=== PATIENT | female | born 1975 | race Caucasian/White ===

== ENCOUNTER 2019-02-04 08:27 | Emergency (ER) | payer BC ==
--- NOTE | 2019-02-04 08:49 | EDM.PDOC ---
ED HPI GENERAL MEDICAL PROBLEM - General Chief Complaint: Lower Extremity Injury/Pain Stated Complaint: BOTH LEGS SWOLLEN & HAVE RED BLOTCHES Time Seen by Provider: 02/04/19 08:43 - History of Present Illness INITIAL COMMENTS - FREE TEXT/NARRATIVE: HISTORY AND PHYSICAL: History of present illness: Patient's 43-year-old female with history chronic pain syndrome who presents with edema of her lower extremities she denies chest pain chores breath or other concern. Review of systems: As per history of present illness and below otherwise all systems reviewed and negative. Past medical history: As per history of present illness and as reviewed below otherwise noncontributory. Surgical history: As per history of present illness and as reviewed below otherwise noncontributory. Social history: No reported history of drug or alcohol abuse. Family history: As per history of present illness and as reviewed below otherwise noncontributory. Physical exam: HEENT: Atraumatic, normocephalic, pupils reactive, negative for conjunctival pallor or scleral icterus, mucous membranes moist, throat clear, neck supple, nontender, trachea midline. Lungs: Clear to auscultation, breath sounds equal bilaterally, chest nontender. Heart: S1S2, regular, negative for clicks, rubs, or JVD. Abdomen: Soft, nondistended, nontender. Negative for masses or hepatosplenomegaly. Negative for costovertebral tenderness. Pelvis: Stable nontender. Genitourinary: Deferred. Rectal: Deferred. Extremities: Atraumatic, negative for cords or calf pain. Neurovascular unremarkable. Neuro: Awake, alert, oriented. Cranial nerves II through XII unremarkable. Cerebellum unremarkable. Motor and sensory unremarkable throughout. Exam nonfocal. Diagnostics: CBC CMP BNP chest x-ray EKG Therapeutics: None Impression: #1 history of peripheral edema #2 history of chronic pain syndrome #3 medical screening exam Definitive disposition and diagnosis as appropriate pending reevaluation and review of above. Bilateral Lower Leg Pain Score (Numeric/FACES): 3 - Related Data Allergies Allergy/AdvReac Type Severity Reaction Status Date / Time No Known Allergies Allergy Verified 02/04/19 08:40 Home Meds: Home Meds Albuterol Sulfate [Proair Hfa] 02/04/19 [History] Cyclobenzaprine [Flexeril] 02/04/19 [History] Gabapentin [Neurontin] 02/04/19 [History] SUMAtriptan [Imitrex] 02/04/19 [History] Topiramate [Topamax] 02/04/19 [History] fentaNYL [Fentanyl] 02/04/19 [History] oxyCODONE HCl/Acetaminophen [Percocet 5-325 mg Tablet] 02/04/19 [History] Past Medical History Respiratory History: Reports: Asthma Musculoskeletal History: Reports: Back Pain, Chronic Neurological History: Reports: Migraines - Infectious Disease History Infectious Disease History: Reports: Chicken Pox - Past Surgical History GI Surgical History: Reports: Bariatric Procedure Female Surgical History: Reports: Tubal Ligation Social & Family History - Family History Family Medical History: Noncontributory - Tobacco Use Smoking Status *Q: Light Tobacco Smoker Years of Tobacco use: 20 Packs/Tins Daily: 0.1 - Recreational Drug Use Recreational Drug Use: No Review of Systems - Review of Systems Review Of Systems: ROS reveals no pertinent complaints other than HPI. ED EXAM, GENERAL - Physical Exam Exam: See Below (See dictation) Course - Vital Signs Last Recorded V/S: Last Vital Signs Temp 36.1 C 02/04/19 08:38 Pulse 104 H 02/04/19 08:38 Resp 18 02/04/19 08:38 BP 125/79 02/04/19 08:38 Pulse Ox 99 02/04/19 08:38 - Orders/Labs/Meds Orders: Active Orders 24 hr Category Date Time Status EKG Documentation Completion [RC] STAT Care 02/04/19 08:47 Active Chest 1V Frontal [CR] Stat Exams 02/04/19 08:47 Taken B-TYPE NATRIURETIC PEPTIDE,BNP [CHEM] Stat Lab 02/04/19 09:00 Received Labs: Laboratory Tests 02/04/19 02/04/19 Range/Units 09:00 09:00 WBC 4.19 (4.0-11.0) K/uL RBC 3.89 L (4.30-5.90) M/uL Hgb 11.8 L (12.0-16.0) g/dL Hct 36.2 (36.0-46.0) % MCV 93.1 (80.0-98.0) fL MCH 30.3 (27.0-32.0) pg MCHC 32.6 (31.0-37.0) g/dL RDW Std Deviation 45.7 (28.0-62.0) fl RDW Coeff of Juan 14 (11.0-15.0) % Plt Count 224 (150-400) K/uL MPV 9.40 (7.40-12.00) fL Neut % (Auto) 32.2 L (48.0-80.0) % Lymph % (Auto) 56.3 H (16.0-40.0) % [place] % (Auto) 8.4 (0.0-15.0) % Eos % (Auto) 2.9 (0.0-7.0) % Baso % (Auto) 0.2 (0.0-1.5) % Neut # (Auto) 1.4 (1.4-5.7) K/uL Lymph # (Auto) 2.4 (0.6-2.4) K/uL [place] # (Auto) 0.4 (0.0-0.8) K/uL Eos # (Auto) 0.1 (0.0-0.7) K/uL Baso # (Auto) 0.0 (0.0-0.1) K/uL Nucleated RBC % 0.0 /100WBC Nucleated RBCs # 0 K/uL Sodium 143 (136-145) mmol/L Potassium 3.6 (3.5-5.1) mmol/L Chloride 111 H (98-107) mmol/L Carbon Dioxide 24.1 (21.0-32.0) mmol/L BUN 13 (7.0-18.0) mg/dL Creatinine 0.7 (0.6-1.0) mg/dL Est Cr Clr Drug Dosing TNP Estimated GFR (MDRD) > 60.0 ml/min Glucose 102 (74-106) mg/dL Calcium 8.3 L (8.5-10.1) mg/dL Total Bilirubin 0.3 (0.2-1.0) mg/dL AST 10 L (15-37) IU/L ALT 13 L (14-63) IU/L Alkaline Phosphatase 43 L (46-116) U/L Total Protein 6.2 L (6.4-8.2) g/dL Albumin 3.2 L (3.4-5.0) g/dL Globulin 3.0 (2.6-4.0) g/dL Albumin/Globulin Ratio 1.1 (0.9-1.6) Departure - Departure Time of Disposition: 09:48 Disposition: Home, Self-Care 01 Condition: Good Clinical Impression: Encounter for medical screening examination - Discharge Information Referrals: PCP,None [Primary Care Provider] - Forms: ED Department Discharge Additional Instructions: The following information is given to patients seen in the emergency department who are being discharged to home. This information is to outline your options for follow-up care. We provide all patients seen in our emergency department with a follow-up referral. The need for follow-up, as well as the timing and circumstances, are variable depending upon the specifics of your emergency department visit. If you don't have a primary care physician on staff, we will provide you with a referral. We always advise you to contact your personal physician following an emergency department visit to inform them of the circumstance of the visit and for follow-up with them and/or the need for any referrals to a consulting specialist. The emergency department will also refer you to a specialist when appropriate. This referral assures that you have the opportunity for followup care with a specialist. All of these measure are taken in an effort to provide you with optimal care, which includes your followup. Under all circumstances we always encourage you to contact your private physician who remains a resource for coordinating your care. When calling for followup care, please make the office aware that this follow-up is from your recent emergency room visit. If for any reason you are refused follow-up, please contact the [facility] emergency department at and asked to speak to the emergency department charge nurse. [facility] [address] [place] [id number] Follow-up primary medical doctor and/or clinic above is discussed return as needed as discussed - My Orders Last 24 Hours: My Active Orders 02/04/19 08:47 EKG Documentation Completion [RC] STAT Chest 1V Frontal [CR] Stat 02/04/19 09:00 B-TYPE NATRIURETIC PEPTIDE,BNP [CHEM] Stat - Assessment/Plan Last 24 Hours: My Active Orders 02/04/19 08:47 EKG Documentation Completion [RC] STAT Chest 1V Frontal [CR] Stat 02/04/19 09:00 B-TYPE NATRIURETIC PEPTIDE,BNP [CHEM] Stat
[2019-02-04 09:25] LABS: CHLORIDE,CL 111 mmol/L (98-107); SODIUM,NA 143 mmol/L (136-145)
--- NOTE | 2019-02-04 09:55 | CR ---
INDICATION: Pain and shortness of breath. TECHNIQUE: Chest 1 view. COMPARISON: None FINDINGS: Cardiovascular and mediastinum: Heart size and vasculature are normal in caliber and appearance. Mediastinum is within normal limits. Lungs and pleural space: Lungs are clear. No sign of infiltrate or mass. No sign of pleural effusion. No pneumothorax. Bones and soft tissues: No significant findings. IMPRESSION: Unremarkable chest. Dictated by Lambert Damon MD @ Feb 04 2019 9:54AM Signed by Dr. Lambert Damon @ Feb 04 2019 9:54AM
== END 2019-02-04 10:11 | disposition home or self-care (01) ==
LOC: MW.ED 08:27
DX: Z13.9 Encounter for screening, unspecified (principal); Z86.79 Personal history of other diseases of the circulatory system; Z87.39 Personal history of other diseases of the musculoskeletal system and connective tissue; J45.909 Unspecified asthma, uncomplicated; F17.210 Nicotine dependence, cigarettes, uncomplicated; Z79.899 Other long term (current) drug therapy
CPT/HCPCS: 36415; 71045; 71045-26; 80053; 83880; 85025; 93005; 99283; 99284-25

== ENCOUNTER 2019-02-06 18:03 | Emergency (ER) | payer BC ==
--- NOTE | 2019-02-06 19:07 | EDM.PDOC ---
ED HPI GENERAL MEDICAL PROBLEM - General Chief Complaint: Lower Extremity Injury/Pain Stated Complaint: LEG PAIN Time Seen by Provider: 02/06/19 19:06 Source of Information: Reports: Patient - History of Present Illness INITIAL COMMENTS - FREE TEXT/NARRATIVE: HISTORY AND PHYSICAL: History of present illness: She presents with right lower extremity pain in her calf as well as behind her knee she has had some intermittent swelling no edema at current No fever nausea vomiting chills sweats no chest pain shortness breath headache dizziness palpitation no bowel or urine symptoms Summary she has completed a car ride from [place] to here she was seen on the see that lab on file Review of systems: As per history of present illness and below otherwise all systems reviewed and negative. Past medical history: As per history of present illness and as reviewed below otherwise noncontributory. Surgical history: As per history of present illness and as reviewed below otherwise noncontributory. Social history: No reported history of drug or alcohol abuse. Family history: As per history of present illness and as reviewed below otherwise noncontributory. Physical exam: HEENT: Atraumatic, normocephalic, pupils reactive, negative for conjunctival pallor or scleral icterus, mucous membranes moist, throat clear, neck supple, nontender, trachea midline. Lungs: Clear to auscultation, breath sounds equal bilaterally, chest nontender. Heart: S1S2, regular, negative for clicks, rubs, or JVD. Abdomen: Soft, nondistended, nontender. Negative for masses or hepatosplenomegaly. Negative for costovertebral tenderness. Pelvis: Stable nontender. Genitourinary: Deferred. Rectal: Deferred. Extremities: Atraumatic, negative for cords or calf pain. Neurovascular unremarkable. Neuro: Awake, alert, oriented. Cranial nerves II through XII unremarkable. Cerebellum unremarkable. Motor and sensory unremarkable throughout. Exam nonfocal. Diagnostics: [Lab on file from previous visit on the venous Doppler rule out DVT ] Therapeutics: [] Impression: Medical screening exam Worried well Definitive disposition and diagnosis as appropriate pending reevaluation and review of above. Right Knee Pain Score (Numeric/FACES): 3 - Related Data Allergies Allergy/AdvReac Type Severity Reaction Status Date / Time No Known Allergies Allergy Verified 02/06/19 18:44 Home Meds: Home Meds Albuterol Sulfate [Proair Hfa] 2 puff INH ASDIRECTED PRN 02/04/19 [History] Cyclobenzaprine [Flexeril] 10 mg PO ASDIRECTED PRN 02/04/19 [History] Gabapentin [Neurontin] 900 mg PO BEDTIME 02/04/19 [History] SUMAtriptan [Imitrex] 100 mg PO ASDIRECTED 02/04/19 [History] Topiramate [Topamax] 150 mg PO BEDTIME 02/04/19 [History] fentaNYL [Fentanyl] 25 mcg TOP ASDIRECTED 02/04/19 [History] oxyCODONE HCl/Acetaminophen [Percocet 5-325 mg Tablet] 1 tab PO Q4HR 02/04/19 [ History] Past Medical History Respiratory History: Reports: Asthma Musculoskeletal History: Reports: Back Pain, Chronic Neurological History: Reports: Migraines - Infectious Disease History Infectious Disease History: Reports: Chicken Pox - Past Surgical History GI Surgical History: Reports: Bariatric Procedure Female Surgical History: Reports: Tubal Ligation Social & Family History - Family History Family Medical History: Noncontributory Review of Systems - Review of Systems Review Of Systems: See Below ED EXAM, GENERAL - Physical Exam Exam: See Below Course - Vital Signs Last Recorded V/S: Last Vital Signs Temp 97.4 F 02/06/19 18:39 Pulse 101 H 02/06/19 18:39 Resp 16 02/06/19 18:39 BP 144/86 H 02/06/19 18:39 Pulse Ox 98 02/06/19 18:39 Departure - Departure Time of Disposition: 19:56 Disposition: Home, Self-Care 01 Condition: Good Clinical Impression: Encounter for medical screening examination - Discharge Information Referrals: PCP,Not In Area [Primary Care Provider] - Forms: ED Department Discharge Additional Instructions: The following information is given to patients seen in the emergency department who are being discharged to home. This information is to outline your options for follow-up care. We provide all patients seen in our emergency department with a follow-up referral. The need for follow-up, as well as the timing and circumstances, are variable depending upon the specifics of your emergency department visit. If you don't have a primary care physician on staff, we will provide you with a referral. We always advise you to contact your personal physician following an emergency department visit to inform them of the circumstance of the visit and for follow-up with them and/or the need for any referrals to a consulting specialist. The emergency department will also refer you to a specialist when appropriate. This referral assures that you have the opportunity for follow-up care with a specialist. All of these measure are taken in an effort to provide you with optimal care, which includes your follow-up. Under all circumstances we always encourage you to contact your private physician who remains a resource for coordinating your care. When calling for follow-up care, please make the office aware that this follow-up is from your recent emergency room visit. If for any reason you are refused follow-up, please contact the [facility] emergency department at and asked to speak to the emergency department charge nurse.
--- NOTE | 2019-02-06 19:55 | US ---
INDICATION: PAIN RT LEG TECHNIQUE: Ultrasound venous duplex right lower extremity. COMPARISON: None. FINDINGS: The right common femoral, superficial femoral, deep femoral, popliteal, posterior tibial, and greater saphenous veins are fully compressible with normal waveforms. No masses evident. IMPRESSION: Normal ultrasound of the right lower extremity veins. Dictated by: Ben Servin MD @ 02/06/2019 19:54:27 (Electronically Signed)
== END 2019-02-06 20:14 | disposition home or self-care (01) ==
LOC: MW.ED 18:03
DX: Z71.1 Person with feared health complaint in whom no diagnosis is made (principal); J45.909 Unspecified asthma, uncomplicated; Z98.84 Bariatric surgery status; Z98.51 Tubal ligation status; Z79.899 Other long term (current) drug therapy
CPT/HCPCS: 93971-26-RT; 93971-RT; 99282; 99283-25